=== PATIENT | female | born 1995 | race Caucasian/White ===

== ENCOUNTER 2020-09-22 02:32 | Emergency (ER) | payer OTHER ==
[~2020-09-22 02:32] MED LIST: BENTYL 20MG TAB20 MG PO; MACROBID 100 M100 MG PO; PEPCID20 MG PO; PERCOCET 7.5-31 EACH PO; ZOFRAN4 MG PO
[2020-09-22 03:17] LABS: HEMOGLOBIN 12.4 gm/dl (12.3-15.3); RED BLOOD COUNT 4.58 M/UL (4.00-5.10); WHITE BLOOD COUNT 9.3 K/UL (4.5-11.0)
[2020-09-22 03:29] LABS: BUN/CREATININE RATIO 23 (0-10)
[2020-09-22] MEDS ORDERED: FLOVENT 110.088 GM/I INH (05:36)
[2020-09-22] MEDS ORDERED: PROAIR DIGIHAL90 MCG INH (05:36)
== END 2020-09-22 05:40 | disposition home or self-care (01) ==
LOC: ER1 02:32
PROVIDERS: Physician Assistant
DX: R07.89 Other chest pain (principal); R06.02 Shortness of breath; R05 Cough; R91.8 Other nonspecific abnormal finding of lung field; F17.290 Nicotine dependence, other tobacco product, uncomplicated; Z88.0 Allergy status to penicillin; Z20.822 Contact with and (suspected) exposure to COVID-19
CPT/HCPCS: 0240U; 71045; 80053; 82550; 82553; 83874; 83880; 84484; 85025; 85379; 85610; 85652; 85730; 86140; 87040; 93005; 96374; 99285; J1100; Q9967

== ENCOUNTER 2020-12-28 09:27 | Emergency (ER) | payer OTHER ==
[~2020-12-28 09:27] MED LIST changes: +FLOVENT 110.088 GM/I INH; +PROAIR DIGIHAL90 MCG INH
[2020-12-28 11:00] LABS: HEMOGLOBIN 13.6 gm/dl (12.3-15.3); RED BLOOD COUNT 4.99 M/UL (4.00-5.10); WHITE BLOOD COUNT 7.9 K/UL (4.5-11.0)
[2020-12-28 11:20] LABS: BUN/CREATININE RATIO 20 (0-10)
[2020-12-28] MEDS ORDERED: ERYTHROMYCIN500 MG PO (12:32)
== END 2020-12-28 12:38 | disposition home or self-care (01) ==
LOC: ER1 09:27
DX: O23.41 Unspecified infection of urinary tract in pregnancy, first trimester (principal); O16.1 Unspecified maternal hypertension, first trimester; O99.331 Smoking (tobacco) complicating pregnancy, first trimester; F17.290 Nicotine dependence, other tobacco product, uncomplicated; Z3A.01 Less than 8 weeks gestation of pregnancy
CPT/HCPCS: 80053; 81001; 84702; 85025; 87086; 99284

== ENCOUNTER → 2021-03-04 | Outpatient (CLI) | payer OTHER ==
[~2021-03-04] MED LIST changes: +ERYTHROMYCIN500 MG PO
== END ==
LOC: LAB 07:44
DX: O99.810 Abnormal glucose complicating pregnancy (principal)
CPT/HCPCS: 36415; 82951; 82952

== ENCOUNTER 2021-06-26 12:49 | Emergency (ER) | payer OTHER | END 2021-06-26 14:10 | disposition home or self-care (01) | LOC: ER1 12:49 | DX: Z04.1 Encounter for examination and observation following transport accident (principal); Z3A.29 29 weeks gestation of pregnancy | CPT/HCPCS: 99283 ==

== ENCOUNTER 2021-07-03 13:41 | Outpatient (CLI) | payer OTHER ==
[2021-07-04] MEDS ORDERED: PRENATAL TABLE1 EAC3 PO (10:08)
[2021-07-04] MEDS ORDERED: ZOFRAN4 MG PO (18:37)
== END 2021-07-03 19:01 | disposition home or self-care (01) ==
LOC: GENOP 13:41
DX: O21.2 Late vomiting of pregnancy (principal); O99.810 Abnormal glucose complicating pregnancy; E16.2 Hypoglycemia, unspecified; O99.213 Obesity complicating pregnancy, third trimester; Z3A.30 30 weeks gestation of pregnancy
CPT/HCPCS: 81001; 96360; 96361; 96374; J2405; J7120

== ENCOUNTER 2021-07-04 09:06 | Observation (INO) | payer OTHER ==
[~2021-07-04] VITALS: Ht 177.8 cm; Wt 153.3 kg
[2021-07-04] MEDS ORDERED: PRENATAL TABLE1 EAC3 PO (10:08)
[2021-07-04 10:17] LABS: RED BLOOD COUNT 4.45 M/UL (4.00-5.10); WHITE BLOOD COUNT 6.9 K/UL (4.5-11.0)
[2021-07-04 10:32] LABS: BUN/CREATININE RATIO 11 (0-10)
[2021-07-04] MEDS ORDERED: ZOFRAN4 MG PO (18:37)
== END 2021-07-04 18:56 | disposition home or self-care (01) ==
LOC: GENOP 09:06 → OB 09:37
PROVIDERS: Obstetrics & Gynecology; ADMIT Obstetrics & Gynecology
DX: O21.0 Mild hyperemesis gravidarum (principal); Z3A.30 30 weeks gestation of pregnancy; Z20.822 Contact with and (suspected) exposure to COVID-19
CPT/HCPCS: 36415; 80053; 82150; 82731; 83690; 85025; 96360; 96361; G0378; J2405; J2590; J7120; U0002

== ENCOUNTER 2021-07-18 08:58 | Outpatient (CLI) | payer OTHER ==
[~2021-07-18 08:58] MED LIST changes: +PRENATAL TABLE1 EAC3 PO
== END 2021-07-18 16:02 | disposition home or self-care (01) ==
LOC: GENOP 08:58
DX: O47.03 False labor before 37 completed weeks of gestation, third trimester (principal); O99.891 Other specified diseases and conditions complicating pregnancy; M54.9 Dorsalgia, unspecified; Z3A.33 33 weeks gestation of pregnancy
CPT/HCPCS: 59025; 81001; 82962; 87086; 96360; 96361; 96367; J0696; J1200; J7030

== ENCOUNTER 2021-08-02 15:25 | Observation (INO) | payer OTHER ==
[2021-08-02 16:12] LABS: HEMOGLOBIN 12.8 gm/dl (12.3-15.3); RED BLOOD COUNT 4.76 M/UL (4.00-5.10); WHITE BLOOD COUNT 8.7 K/UL (4.5-11.0)
[2021-08-02 16:49] LABS: BUN/CREATININE RATIO 18 (0-10)
== END 2021-08-02 17:48 | disposition home or self-care (01) ==
LOC: GENOP 15:25 → OB 15:48
PROVIDERS: ADMIT Obstetrics & Gynecology
DX: O13.3 Gestational [pregnancy-induced] hypertension without significant proteinuria, third trimester (principal); O99.213 Obesity complicating pregnancy, third trimester; E66.01 Morbid (severe) obesity due to excess calories; O12.03 Gestational edema, third trimester; O99.891 Other specified diseases and conditions complicating pregnancy; R51.9 Headache, unspecified; O24.013 Pre-existing type 1 diabetes mellitus, in pregnancy, third trimester; O10.013 Pre-existing essential hypertension complicating pregnancy, third trimester; Z3A.35 35 weeks gestation of pregnancy; Z88.0 Allergy status to penicillin; Z90.49 Acquired absence of other specified parts of digestive tract; Z20.822 Contact with and (suspected) exposure to COVID-19
CPT/HCPCS: 80053; 81001; 82570; 84156; 84550; 85025; 87086; G0378; G0463; U0002

== ENCOUNTER → 2021-08-03 | Outpatient (CLI) | payer OTHER ==
[2021-08-03 17:15] LABS: URINE TOTAL PROTEIN 13 mg/dl
== END ==
LOC: LBRF 16:19
PROVIDERS: Obstetrics & Gynecology
DX: I10 Essential (primary) hypertension (principal)
CPT/HCPCS: 84156

== ENCOUNTER 2021-08-14 17:22 | Inpatient (IN) | payer OTHER ==
[~2021-08-14] VITALS: Ht 177.8 cm; Wt 154.2 kg
[2021-08-14 18:17] LABS: HEMOGLOBIN 12.7 gm/dl (12.3-15.3); RED BLOOD COUNT 4.64 M/UL (4.00-5.10); WHITE BLOOD COUNT 9.4 K/UL (4.5-11.0)
[2021-08-14] MEDS ORDERED: TRANDATE 100 M100 MG PO (22:54)
[2021-08-16 06:22] LABS: HEMOGLOBIN 10.6 gm/dl (12.3-15.3)
[2021-08-17] MEDS ORDERED: IBUPROFEN600 MG PO (09:29)
[2021-08-17] MEDS ORDERED: COLACE 100MG C100 MG PO (09:29)
== END 2021-08-17 11:42 | disposition home or self-care (01) | DRG 807 ==
LOC: GENOP 17:22 → OB 17:40
PROVIDERS: ADMIT Obstetrics & Gynecology
PROC: 10E0XZZ Delivery of Products of Conception, External Approach (ICD-10-PCS; principal; 2021-08-14)
PROC: 10907ZC Drainage of Amniotic Fluid, Therapeutic from Products of Conception, Via Natural or Artificial Opening (ICD-10-PCS; 2021-08-14)
PROC: 4A1HXCZ Monitoring of Products of Conception, Cardiac Rate, External Approach (ICD-10-PCS; 2021-08-14)
PROC: 3E0234Z Introduction of Serum, Toxoid and Vaccine into Muscle, Percutaneous Approach (ICD-10-PCS; 2021-08-16)
PROC: 3E02340 Introduction of Influenza Vaccine into Muscle, Percutaneous Approach (ICD-10-PCS; 2021-08-17)
DX: O99.214 Obesity complicating childbirth (principal); Z37.0 Single live birth; E66.9 Obesity, unspecified; O13.4 Gestational [pregnancy-induced] hypertension without significant proteinuria, complicating childbirth; Z20.822 Contact with and (suspected) exposure to COVID-19; O69.81X0 Labor and delivery complicated by cord around neck, without compression, not applicable or unspecified; Z3A.37 37 weeks gestation of pregnancy; Z90.49 Acquired absence of other specified parts of digestive tract; Z88.1 Allergy status to other antibiotic agents; Z88.0 Allergy status to penicillin; Z23 Encounter for immunization
CPT/HCPCS: 36415; 81001; 85014; 85018; 85025; 90472; 90686; 90715; G0008; J2590; J7120; U0002